=== PATIENT | female | born 2000 | race Caucasian/White ===

== ENCOUNTER 2022-02-09 01:15 | Day surgery (SDC) | payer BC, SELFPAY ==
[2022-01-30 13:38] VITALS: BMI 23.8
[2022-02-09 11:49] VITALS: BP 128/86; PULSE 77; RESP 18; TEMP 36.7; O2SAT 100
[2022-02-09] MEDS: LACTATED RINGERS 1,000 ML 150 ML IV CONT (11:57)
--- NOTE | 2022-02-09 12:36 | PM.HPGS ---
History of Present Illness History of Present Illness Consent: Risks, benefits, and alternatives have been discussed and questions answered. Patient agrees to proceed with procedure. Chief complaint: dysphagia, nausea Narrative: Bridget Rodriguez is a 21 year old female with compaints of coughing/vomiting/dysphagia for approximately 1 year. Reports coughing and vomiting are worse during the night, states coughing will wake her up, coughing will progress to vomiting yellow acid. she reports intermittent oral pharyngeal dysphagia to breads and meats, and applesauce. dysphagia improves with drinking liquids. She tried diet changes, not eating late at night and elevating the HOB without any improvement in symptoms. Recently was seen by ENT, Dr. Gonsalves, nasal scope showed endoscopic evidence of reflux (res reviewed). He started her on omeprazole 20 mg which she took for 1-2 weeks, denies any improvement. She states that she is taking omeprazole again, now taking it twice a day the so for now significant improvement. She states that she rarely goes through a night without waking up coughing and choking. I should add that she never has heartburn. Review of Systems Review of Systems: All systems reviewed & are unremarkable except as noted in HPI and below PMFSH Past Medical History Medical History Hypertriglyceridemia Family History Family History Father No problems noted. Mother Hypertension Grandparent Hypertension Diabetes mellitus Heart disease Kidney disease Social History Social History Smoking status: Never smoker Second hand tobacco smoke exposure: No Alcohol intake: current Drinks per week: 6 Substance use: never Substance use type: does not use Living arrangements: with friend(s) Spiritual care concerns: No Meds Home Medications and Allergies Home Medications Medication Instructions Recorded Confirmed Type gcxirtdmzwvt-Ma-vudt-minerals 18 1 tablet PO DAILY tablet 05/26/20 02/02/22 History mg-0.4 mg tablet norethindrone 1 mg-ethinyl 1 tablet PO DAILY 05/26/20 02/02/22 History estradiol 20 mcg (21)-iron 75 mg (7) tablet escitalopram oxalate 20 mg tablet 20 mg PO DAILY #90 tablet 12/12/21 02/02/22 Rx biotin 10,000 mcg capsule 10,000 mcg PO DAILY 01/19/22 02/02/22 History methylprednisolone 4 mg tablets in See Rx Instructions PO PER PKG DIR 02/02/22 02/09/22 Rx a dose pack #21 ea omeprazole 20 mg capsule,delayed 20 mg PO BID #30 cap 02/02/22 02/09/22 Rx release Allergies Allergy/AdvReac Type Severity Reaction Status Date / Time No Known Allergies Allergy Verified 02/09/22 11:46 Vital Signs Vital Signs - 24 hr 02/09/22 11:49 Temperature 36.7 C Pulse Rate 77 Respiratory Rate 18 Blood Pressure 128/86 Pulse Oximetry 100 Exam Const: General: alert Orientation/consciousness: patient oriented x3 Resp: Auscultation: clear to auscultation bilaterally Cardio: Rhythm: regular rhythm GI: GI Palp: Yes Soft to palpation and No Tenderness to palpation present (GI) Neuro: General: patient oriented x3 Assessment and Plan Assessment and plan (1) Dysphagia: Code(s): R13.10 - Dysphagia, unspecified Status: Acute Assessment and Plan: EGD with possible biopsy or dilatation or cautery.
--- NOTE | 2022-02-09 12:37 | WPDANESEPPF ---
Anes - Initial Pre Proc Eval Procedure: Operation Date: 02/09/22 13:00 Proposed Procedures p Esophagogastroduodenoscopy - Tahir Park MD Date/Time: 02/09/22 12:37 Surgeon: aThir Park MD Pre Op Diagnosis: dysphagia, nausea Patient Data Age: 21 Gender: F Height: 1.7 m Weight: 68.5 kg Last Vital Signs Temp 98.0 F 02/09/22 11:49 Pulse 77 02/09/22 11:49 Resp 18 02/09/22 11:49 BP 128/86 02/09/22 11:49 Pulse Ox 100 02/09/22 11:49 Allergies Allergy/AdvReac Type Severity Reaction Status Date / Time No Known Allergies Allergy Verified 02/09/22 11:46 Home Medications Medication Instructions Recorded Confirmed Type oonorefbyzyu-Dy-ycch-minerals 18 1 tablet PO DAILY tablet 05/26/20 02/02/22 History mg-0.4 mg tablet norethindrone 1 mg-ethinyl 1 tablet PO DAILY 05/26/20 02/02/22 History estradiol 20 mcg (21)-iron 75 mg (7) tablet escitalopram oxalate 20 mg tablet 20 mg PO DAILY #90 tablet 12/12/21 02/02/22 Rx biotin 10,000 mcg capsule 10,000 mcg PO DAILY 01/19/22 02/02/22 History methylprednisolone 4 mg tablets in See Rx Instructions PO PER PKG DIR 02/02/22 02/09/22 Rx a dose pack #21 ea omeprazole 20 mg capsule,delayed 20 mg PO BID #30 cap 02/02/22 02/09/22 Rx release Patient hx anesthesia problems: none Family hx anesthesia problems: none Results Review: All pre-operative results and documents have been reviewed as part of the pre-operative evaluation. [facility] Past Medical History Medical History Hypertriglyceridemia Family History Family History Father No problems noted. Mother Hypertension Grandparent Hypertension Diabetes mellitus Heart disease Kidney disease Social History Social History Smoking status: Never smoker Second hand tobacco smoke exposure: No Alcohol intake: current Drinks per week: 6 Substance use: never Substance use type: does not use Living arrangements: with friend(s) Spiritual care concerns: No Anes - Eval Final PreProcedure Day of Procedure 02/09/22 12:37 Patient weight: normal Heart: regular rate and rhythm Lungs: clear to auscultation Airway: Mallampati scale class II Neurological: alert and oriented Last oral intake: >/= 8 hours ASA classification: II Emergent: no Anesthetic plan: proceed Anesthesia type and monitoring: general GIVS and standard monitoring Results Review: All pre-operative results and documents have been reviewed as part of the pre-operative evaluation. Informed Consent: The patient's anesthetic plan and its attendant risks and benefits were discussed with the patient/family/POA. Questions were solicited and answers provided to the satisfaction of the patient/family/POA.
[2022-02-09 13:13] VITALS: BP 118/81; PULSE 70; RESP 25; O2SAT 100
[2022-02-09 13:23] VITALS: BP 124/85; PULSE 63; RESP 21; O2SAT 100
[2022-02-09 13:33] VITALS: BP 132/88; PULSE 62; RESP 16; O2SAT 100
== END 2022-02-09 13:39 | disposition home or self-care (01) ==
PROVIDERS: PCP Physician Assistant; Visit Provider Internal Medicine Gastroenterology
PROC: 0DJ08ZZ Inspection of Upper Intestinal Tract, Via Natural or Artificial Opening Endoscopic (ICD-10-PCS; CPT 43235; principal; 2022-02-09 13:00)
DX: K21.9 Gastro-esophageal reflux disease without esophagitis (principal); R13.10 Dysphagia, unspecified; R11.0 Nausea; E78.1 Pure hyperglyceridemia; R05.9 Cough, unspecified
CPT/HCPCS: 43239; 87081; 88305; J7120

== ENCOUNTER 2023-12-15 11:53 | Inpatient (IN) | payer BC, SELFPAY ==
[2023-12-15] VITALS (95 sets, daily range): BP systolic 106–177; BP diastolic 53–157; PULSE 25–174; RESP 18; TEMP 36.6–36.9; O2SAT 78–100; BMI 25.9
--- NOTE | ~2023-12-15 | US_ITS ---
Limited Pelvic ultrasound. Clinical History: Assess position Technique: Realtime transabdominal scanning of the pelvis was performed. Color flow Doppler and Doppl er spectral analysis were performed. Findings: Intrauterine gestation present, with vertex lie. heart rate 155 bpm.. Impression: Intrauterine gestation with vertex lie and heart rate of 155 bpm. Reviewed, dictated and finalized at [facility]. [employer] Impression: Intrauterine gestation with vertex lie and heart rate of 155 bpm.
--- NOTE | 2023-12-15 12:40 | PM.IMHP ---
H&P: HPI History of Present Illness Date/Time: 12/15/23 12:40 Chief Complaint: ruptured membranes Narrative: this is a 23-year-old 1 para 0 whose last menstrual period was 04/20/2023, EDC is 01/18/2024, confirmed a 10 week ultrasound presents at 35 and half weeks gestation with ruptured membranes. She noted some leaking fluid over about the last 24hours. She is negative for group B strep. Her has been otherwise uncomplicated. PMFSH Past Medical History Medical History Hypertriglyceridemia Family History Family History Father No problems noted. Mother Hypertension Grandparent Hypertension Diabetes mellitus Heart disease Kidney disease Social History Social History Smoking status: Never smoker Second hand tobacco smoke exposure: No Alcohol intake: current Drinks per week: 6 Substance use: never Substance use type: does not use Living arrangements: with friend(s) Spiritual care concerns: No Meds Home Medications and Allergies Home Medications Medication Instructions Recorded Confirmed Type ntambrosckwn-Tq-cbpj-minerals 18 1 tablet PO DAILY 05/26/20 02/02/22 History mg-0.4 mg tablet norethindrone 1 mg-ethinyl 1 tablet PO DAILY 05/26/20 02/02/22 History estradiol 20 mcg (21)-iron 75 mg (7) tablet ([place] Fe 11/24 ()) biotin 10,000 mcg capsule 10,000 mcg PO DAILY 01/19/22 02/02/22 History methylprednisolone 4 mg tablets in See Rx Instructions PO PER PKG DIR 02/02/22 02/09/22 Rx a dose pack (Medrol ([place])) #21 ea omeprazole 20 mg capsule,delayed See Rx Instructions .Route 06/02/22 Rx release .COMPLEX #30 caps escitalopram oxalate 20 mg tablet 20 mg PO DAILY #90 tabs 09/06/22 Rx Allergies Allergy/AdvReac Type Severity Reaction Status Date / Time No Known Allergies Allergy Verified 02/09/22 11:46 Vital Signs Vital Signs - 24 hr 12/15/23 12:30 Pulse Rate 75 Blood Pressure 150/91 H Exam Const: General: cooperative, healthy appearing and comfortable Nutritional Appearance: average body habitus Orientation/consciousness: oriented to person, oriented to place and oriented to time HENMT: Head: normal to inspection Resp: Effort & Inspection: normal respiratory effort Cardio: Rate: regular rate Rhythm: regular rhythm Heart sounds: S1 normal heart sound present and S2 normal heart sound present GI: Inspection: normal to inspection ( Soft gravid uterus) : External Female Exam: normal external appearance Speculum Exam - Vagina: normal appearance of the vagina Speculum Exam - Cervix: normal appearance of the cervix ( cervix 2.5/ 80/-2. Clear fluid seen. FHTs were reassuring) Assessment and Plan Assessment and plan (1) premature rupture of membranes: Code(s): O42.919 - premature rupture of membranes, unspecified as to length of time between rupture and onset of labor, unspecified trimester Status: Acute Plan IV antibiotics begun. Pitocin begun as prolonged ruptured ruptured membranes are present. She has an epidural candidate. Spontaneous vaginal delivery is expected
[2023-12-15 13:04] LABS: Basophils Percent Auto 0.2 % (0.2-1.2); Eosinophils Percent Auto 0.3 % (0-4.4); Hematocrit 41.7 % (37.0-47.0); Immature Granulocyte Absolute 0.03 K/mm3 (0.00-0.031); Immature Granulocyte Percent A 0.3 % (0-0.5); Lymphocytes Absolute Auto 1.59 K/mm3 (0.9-3.2); Lymphocytes Percent Auto 15.8 % (18.3-44.2); Mean Corpuscular HGB Conc 33.6 g/dl (32-36); Mean Corpuscular Hemoglobin 29.9 pg (26-34); Mean Corpuscular Volume 89.1 fl (80-100); Mean Platelet Volume 11.8 fl (7.4-10.4); Monocytes Absolute Auto 0.5 K/mm3 (0.1-0.6); Neutrophils Absolute Auto 7.9 K/mm3 (1.3-6.7); Neutrophils Percent Auto 78.4 % (45.5-73.1); Platelet Count Result 188 k/mm3 (150-375); Red Blood Count 4.68 M/mm3 (4.2-5.4); Red Cell Distribution Width 12.7 % (11.5-14.5); White Blood Count 10.1 K/mm3 (4.5-10.0)
[2023-12-15] MEDS: LACTATED RINGERS 1,000 ML 125 ML IV CONT ×2 (13:16→16:05)
[2023-12-15] MEDS: OXYTOCIN 30 UNITS/NS 500 ML 30 UNITS/500 ML BAG IV CONT (13:17)
[2023-12-15] MEDS: AMPICILLIN 2 GM/NS 100 ML 2 GM/100 ML BAG IVPB (13:17)
--- NOTE | 2023-12-15 13:35 | LDADM ---
This patient, Bridget Valenzuela, was admitted to Labor/Delivery/Recovery 106 on 12/15/23 at 11:53. Plans for labor, pain management and were discussed with patient. Patient/family oriented to hospital policies and general routines including ID bracelet, bed and alarms, visiting hours, pain management, procedures, bathroom and other care routines, personal items, smoking policy, room service/diet and guest tray routines, security routines, and visiting hours. Patient/Family are encouraged to report perceived risks to care and to ask questions if they do not understand what they are told or what they should do. See OBIX for further documentation.
--- NOTE | 2023-12-15 15:38 | WPDANESEPP ---
Anes - Eval Pre Procedure Procedure: labor pain management Date/Time: 12/15/23 15:38 Surgeon: Renan Arechiga Preop Diagnosis: pain during labor Pre Op Diagnosis: ROM Patient Data Age: 23 Gender: F Height: 1.7 m Weight: 75 kg Last Vital Signs Temp 98.4 F 12/15/23 14:00 Pulse 80 12/15/23 15:16 BP 144/94 H 12/15/23 15:16 Pulse Ox 100 12/15/23 15:35 O2 Del Method Room Air 12/15/23 13:35 Allergies Allergy/AdvReac Type Severity Reaction Status Date / Time No Known Allergies Allergy Verified 02/09/22 11:46 Laboratory Tests 12/15/23 12:59 WBC 10.1 H K/mm3 (4.5-10.0) RBC 4.68 M/mm3 (4.2-5.4) Hgb 14.0 g/dL (12.0-15.0) Hct 41.7 % (37.0-47.0) MCV 89.1 fl (80-100) MCH 29.9 pg (26-34) MCHC 33.6 g/dl (32-36) RDW 12.7 % (11.5-14.5) Plt Count 188 k/mm3 (150-375) MPV 11.8 H fl (7.4-10.4) Immature Gran % (Auto) 0.3 % (0-0.5) Neut % (Auto) 78.4 H % (45.5-73.1) Lymph % (Auto) 15.8 L % (18.3-44.2) [place] % (Auto) 5.0 % (2.6-8.5) Eos % (Auto) 0.3 % (0-4.4) Baso % (Auto) 0.2 % (0.2-1.2) Lymph # (Auto) 1.59 K/mm3 (0.9-3.2) [place] # (Auto) 0.5 K/mm3 (0.1-0.6) Eos # (Auto) 0.0 K/mm3 (0-0.3) Baso # (Auto) 0.0 K/mm3 (0.0-0.1) Abs Immat Gran (auto) 0.03 K/mm3 (0.00-0.031) Absolute Neuts (auto) 7.9 H K/mm3 (1.3-6.7) Absolute Nucleated RBC 0.0 K/mm3 (0.0-0.012) Nucleated RBC % 0.0 % (0.0-0.2) RPR Pending Blood Type B Positive Antibody Screen Negative Patient hx anesthesia problems: none Family hx anesthesia problems: none Results Review: All pre-operative results and documents have been reviewed as part of the pre-operative evaluation. PMFSH Past Medical History Medical History Hypertriglyceridemia Family History Family History Father No problems noted. Mother Hypertension Grandparent Hypertension Diabetes mellitus Heart disease Kidney disease Social History Social History Smoking status: Never smoker Second hand tobacco smoke exposure: No Alcohol intake: current Drinks per week: 6 Substance use: never Substance use type: does not use Do You Feel Safe in your Home?: No Lack of Transportation: No Lack of Food: Never True Current Housing: I Have Housing Concerned About Future Housing: No Difficulty Paying Gas/Electric Bills: No Difficulty Paying for Meds: No Currently Unemployed: No Education: Don't Know Difficulty w/ Childcare or Family Care: No Living arrangements: with friend(s) Spiritual care concerns: No Exam Day of Procedure 12/15/23 15:38
[2023-12-15] MEDS: AMPICILLIN 1 GM/NS 50 ML 1 GM/50 ML BAG IVPB (17:20)
--- NOTE | 2023-12-15 19:06 | PM.OBPRVD ---
OB - Vaginal Delivery Note Procedure Delivery date: 12/15/23 Events: Premature Rupture of Membranes Induction method: None Delivery augmentation: Pitocin Delivery monitor: External FHT and Internal Uterine Route of delivery: Episiotomy description: None Laceration Description: Perineal - 2nd Degree Quantitative Blood Loss (ml): 161 Anesthesia type: Epidural Disposition: Floor Complications: No immediate complications [place] Baby Date of : 12/15/23 Time of : 18:51 Weeks of gestation at delivery: 35 gender: Male presentation: vertex position: Right Occiput Anterior Placenta delivery description: Spontaneous Cord Vessel Description: 3 Vessels score one minute: 8 score five minutes: 9
--- NOTE | 2023-12-15 19:09 | PM.DS ---
DS: Admitting Diagnosis Discharge Date 12/17/2023 Admitting Diagnosis Pre term rupture membranes DS: Discharge Diagnosis Discharge Diagnosis (1) Pain during labor: Code(s): O99.892 - Other specified diseases and conditions complicating childbirth; R52 - Pain, unspecified Status: Acute DS: Summary Hospital Course Reason for hospitalization: the patient was admitted 12/15/2023 with spontaneous rupture membr Hospital Course: anes at 35 weeks. She underwent spontaneous vaginal delivery. Her hospital course unremarkable. She remained afebrile. She was up, voiding without difficulty and ambulating, eating regular diet, 8 in general without complaints. Time Spent with Patient Time attestation: Total time spent providing and/or coordinating discharge services: Exam Const: General: cooperative, healthy appearing and comfortable Nutritional Appearance: average body habitus Orientation/consciousness: oriented to person, oriented to place and oriented to time HENMT: Head: normal to inspection Resp: Effort & Inspection: normal respiratory effort Cardio: Rate: regular rate Rhythm: regular rhythm Heart sounds: S1 normal heart sound present and S2 normal heart sound present GI: Inspection: normal to inspection DS: Data Data Completed and Pending Labs on day of discharge: Labs from last 24 hours 12/15/23 12:59 WBC 10.1 H RBC 4.68 Hgb 14.0 Hct 41.7 MCV 89.1 MCH 29.9 MCHC 33.6 RDW 12.7 Plt Count 188 MPV 11.8 H Immature Gran % (Auto) 0.3 Neut % (Auto) 78.4 H Lymph % (Auto) 15.8 L [place] % (Auto) 5.0 Eos % (Auto) 0.3 Baso % (Auto) 0.2 Lymph # (Auto) 1.59 [place] # (Auto) 0.5 Eos # (Auto) 0.0 Baso # (Auto) 0.0 Abs Immat Gran (auto) 0.03 Absolute Neuts (auto) 7.9 H Absolute Nucleated RBC 0.0 Nucleated RBC % 0.0 RPR Pending Blood Type B Positive Antibody Screen Negative Discharge Plan Discharge Attending physician on discharge: Nader Jeffery Discharging Clinician: Nader Jeffery Patient Disposition: Home, Self-Care Activity: may shower and pelvic rest Diet: heart healthy Wound Care Instructions: follow printed instructions Patient Instructions: Antibiotic Form Stand Alone Forms: General Discharge Information Follow-up/Referrals: Nader Jeffery MD [Physician] - Date of admission: 12/15/23 11:53 Primary Care Provider: Jayjay Virgen Admitting Provider: Nader Jeffery Attending physician on admission: Nader Jeffery Condition: Stable
[2023-12-15] MEDS: OXYTOCIN 30 UNITS/NS 500 ML 30 UNITS/500 ML BAG 125 UNITS IV CONT (19:38)
[2023-12-15] MEDS: BENZOCAINE 20% AER SPR (*SP) 56 GM CAN 1 SPRAY TOPICAL (20:49)
[2023-12-15] MEDS: WITCH HAZEL 40 PADS 1 PAD TOPICAL (20:49)
--- NOTE | 2023-12-15 21:51 | OBPPTRN ---
Patient transferred to post room #290 via w/c. Support person present. Oriented to unit, room, information board, rooming in, admission packet and security measures. Patient verbalizes understanding.
[2023-12-15] MEDS: IBUPROFEN 600 MG TABLET PO (22:25)
[2023-12-16 03:00] VITALS: BP 118/72; PULSE 77; RESP 18; TEMP 36.7
[2023-12-16] MEDS: ACETAMINOPHEN 325 MG TABLET 650 MG PO ×2 (04:35→16:31)
[2023-12-16 04:55] LABS: Hematocrit 29.3 % (37.0-47.0); Hemoglobin 9.8 g/dL (12.0-15.0)
--- NOTE | 2023-12-16 06:21 | PM.OBPNVD ---
OB - PN: Subj Subjective Date/time seen: 12/16/23 06:21 Patient comments: no complaints and pain well controlled baby status: doing well OB - PN: Obj Data Labs 12/16/23 04:44 Labs: Laboratory Results - last 24 hr 12/15/23 12/16/23 12:59 04:44 WBC 10.1 H RBC 4.68 Hgb 14.0 9.8 L D Hct 41.7 29.3 L MCV 89.1 MCH 29.9 MCHC 33.6 RDW 12.7 Plt Count 188 MPV 11.8 H Immature Gran % (Auto) 0.3 Neut % (Auto) 78.4 H Lymph % (Auto) 15.8 L [place] % (Auto) 5.0 Eos % (Auto) 0.3 Baso % (Auto) 0.2 Lymph # (Auto) 1.59 [place] # (Auto) 0.5 Eos # (Auto) 0.0 Baso # (Auto) 0.0 Abs Immat Gran (auto) 0.03 Absolute Neuts (auto) 7.9 H Absolute Nucleated RBC 0.0 Nucleated RBC % 0.0 Blood Type B Positive Antibody Screen Negative Imaging Radiologist's impression: Impressions Obstetrics Ultrasound 12/15/23 16:40 Impression: Intrauterine gestation with vertex lie and heart rate of 155 bpm. OB - PN A/P Plan day: 1 Plan: routine care Time Spent With Patient Time: Total time spent is greater than 50% in coordination of care (as documented) at patient's floor/unit and/or counseling patient: Time with patient: less than 15 minutes Exam Const: General: cooperative, healthy appearing and comfortable Nutritional Appearance: average body habitus Orientation/consciousness: oriented to person, oriented to place and oriented to time Resp: Effort & Inspection: normal respiratory effort GI: Inspection: normal to inspection
[2023-12-16 08:16] VITALS: BP 120/75; PULSE 78; RESP 20; TEMP 36.6; O2SAT 100
[2023-12-16] MEDS: DOCUSATE SODIUM 100 MG CAPSULE PO ×2 (08:42→16:31)
[2023-12-16] MEDS: WITCH HAZEL 40 PADS 1 PAD TOPICAL (08:42)
[2023-12-16] MEDS: POLYSACCHARIDE IRON COMPLEX 150 MG CAPSULE PO ×2 (08:42→16:31)
[2023-12-16] MEDS: IBUPROFEN 600 MG TABLET PO ×2 (08:42→19:13)
[2023-12-16] MEDS: MULTIVIT/MIN/PREN/FOL AC/IRON TABLET 1 TAB PO (08:42)
[2023-12-16] MEDS: LANOLIN (LANSINOH) 7.5 GM CREAM 1 APPLIC TOPICAL (08:43)
--- NOTE | 2023-12-16 09:16 | WPDANLDPN2 ---
Anes-Prog Note L&D Date/Time: 12/16/23 09:16 Comfortable throughout: labor and delivery Neuraxial method: epidural Epidural/Spinal procedure site: clean & non-tender Neuro status: Neuro function grossly intact. Cardiovascular status: normal Respiratory status: normal Airway patency: baseline Mental status: baseline Post-Op hydration status: normal Vital Signs: Last Vital Signs Temp 97.9 F 12/16/23 08:16 Pulse 78 12/16/23 08:16 Resp 20 12/16/23 08:16 BP 120/75 12/16/23 08:16 Pulse Ox 100 12/16/23 08:16 O2 Del Method Room Air 12/15/23 22:00 Pain score (VAS): 0 I/O: Intake & Output 12/15/23 12/16/23 12/16/23 23:59 07:59 15:59 Intake Total 1000 Output Total 840 Balance 160 Post-procedural complaints: none Patient feedback: Patient satisfied with anesthetic care.
[2023-12-16 17:59] VITALS: BP 124/64; PULSE 96; RESP 18; TEMP 37.1; O2SAT 99
[2023-12-16 19:14] VITALS: BP 120/80; PULSE 82; RESP 16; TEMP 36.8; O2SAT 99
--- NOTE | 2023-12-17 07:07 | PM.OBPNVD ---
OB - PN: Subj Subjective Date/time seen: 12/17/23 07:07 Patient comments: no complaints and pain well controlled baby status: doing well OB - PN: Obj Data Labs 12/16/23 04:44 OB - PN A/P Plan day: 1 Plan: routine care Time Spent With Patient Time: Total time spent is greater than 50% in coordination of care (as documented) at patient's floor/unit and/or counseling patient: Time with patient: less than 15 minutes Exam Const: General: cooperative, healthy appearing and comfortable Nutritional Appearance: average body habitus Orientation/consciousness: oriented to person, oriented to place and oriented to time HENMT: Head: normal to inspection Resp: Effort & Inspection: normal respiratory effort Cardio: Rate: regular rate Rhythm: regular rhythm Heart sounds: S1 normal heart sound present and S2 normal heart sound present GI: Inspection: normal to inspection
[2023-12-17 07:40] VITALS: BP 126/82; PULSE 78; RESP 12; TEMP 36.4; O2SAT 99
[2023-12-17] MEDS: MULTIVIT/MIN/PREN/FOL AC/IRON TABLET 1 TAB PO (07:41)
[2023-12-17] MEDS: DOCUSATE SODIUM 100 MG CAPSULE PO ×2 (07:41→17:13)
[2023-12-17] MEDS: POLYSACCHARIDE IRON COMPLEX 150 MG CAPSULE PO ×2 (07:41→17:13)
[2023-12-17 10:41] LABS: Rapid Plasma Reagin Non-Reactive (NonReactive)
[2023-12-17] MEDS: IBUPROFEN 600 MG TABLET PO ×2 (11:18→17:13)
--- NOTE | 2023-12-17 16:01 | PC.NURSE ---
1430 Introductions were made, then consulted with patient to assess needs related to . Mother led the conversation with her?plans to feed?her and the?experience so far. Encouraged understanding of the benefits of skin to skin (demonstrating unwrapping infant and placing upright on her chest), stimulating with massage touch, changing positions to encourage wakefulness, how to watch for early feeding cues, responsive feeding, feeding on demand (aiming for 8-12 times in 24 hours, about every 2-3 hours), milk production, building/maintaining a milk supply, duration of feeding, signs of adequate intake/output and how to record on the feeding sheet. Mother works well with her with encouragement and education. Reviewed positioning and ear, shoulder, hip alignment, supporting the breast to facilitate a deep latch, asymmetrical latch (off-center), leading with the chin with a big, open, wide gape and body close to mother. Infant is put to breast before formula is given per physician's orders. When attempts to breast feed encouraged to use comfort measures of healing with a warm, wet washcloth to rinse breast, then leave open to air-dry, good handwashing when or touching the breast/nipples to prevent infection. Mother voiced understanding of skin to skin, stimulating with massage touch, responsive feedings, hand expressed colostrum, talking to infant to encourage if it has been 2 -2.5 hours since the start of the last , to call if infant does not latch, or if there is discomfort with . Resources used for education were facilitated with the visual educational handouts/ tool/mom and baby guide, Inpatient resources provided with business card, feeding sheet, name written on the communication board, and the mom/baby guide. Parents voiced understanding of information, demonstrated learning and will call if there is a request for assistance with next attempt to breastfeed. Reported to the Primary RN.
--- NOTE | 2023-12-18 15:42 | PC.NURSE ---
1300 Consulted with patient to assess needs related to and pumping. Discussed with mother her?plans to feed?her infant and the?experience so far. Resources provided for inpatient and outpatient services with the feeding sheet, mom/baby guide and name written on the communication board. Mother voiced understanding of information, denies needs or questions at this time and will call if there is a request for assistance. Reported to the Primary RN.
[2023-12-19 13:41] VITALS: BP 116/80; PULSE 85; RESP 18; TEMP 36.8; O2SAT 100
== END 2023-12-17 17:55 | disposition home or self-care (01) | DRG 807 ==
LOC: ANHLDR 19:12 → ANHOB2 21:59
PROVIDERS: Admitting Provider Obstetrics & Gynecology; PCP Physician Assistant; Visit Provider Obstetrics & Gynecology
DX: O42.913 Preterm premature rupture of membranes, unspecified as to length of time between rupture and onset of labor, third trimester (principal); Z37.0 Single live birth; O70.1 Second degree perineal laceration during delivery; Z3A.35 35 weeks gestation of pregnancy
CPT/HCPCS: 36415; 76815; 84112; 85014; 85018; 85025; 86592; 86850; 86900; 86901; A9270; J0290; J2590; J2795; J7120

== ENCOUNTER 2025-01-19 12:10 | Emergency (ER) | payer BC, SELFPAY ==
--- NOTE | ~2025-01-19 | CT_ITS ---
CT abdomen pelvis w con Ordering provider: Hilda Cantrell MD History: 24 years Female with . epigastric pain after eating, N/V . Comparison: None. Technique: CT abdomen and pelvis with IV and without oral contrast. Automated exposure control and it erative reconstruction technique were employed. The dose-length product was 188.58 mGy-cm. 100 mL Omn ipaque 350 was given IV. Findings: VISUALIZED LOWER CHEST: Normal. UPPER ABDOMINAL ORGANS: Liver: Normal. Gallbladder: Contracted. Spleen: Normal. Stomach/duodenum: Normal. Pancreas: Normal. Adrenals: Normal. Kidneys: Normal. PELVIC ORGANS: The bladder is normal. BOWEL AND MESENTERY: Colon: No evidence of diverticulitis.. Normal appendix. Small Bowel: Normal. No obstruction. Peritoneum/mesentery: No free air or free fluid. No mesenteric lymphadenopathy. RETROPERITONEUM: Normal aorta. Prominent vessels in the sides of the uterus suggestive of pelvic con gestion syndrome. No retroperitoneal lymphadenopathy. MUSCULOSKELETAL: Superficial soft tissues: The superficial soft tissues are normal. Bones: Normal spine. IMPRESSION: 1. No evidence of appendicitis, diverticulitis or intestinal obstruction. 2. Pelvic congestion syndrome. Reviewed, dictated and finalized at location A.
[2025-01-19 12:10] VITALS: BP 130/89; PULSE 75; RESP 16; TEMP 36.6; O2SAT 100
--- NOTE | 2025-01-19 12:31 | ED_ITS ---
HPI - Abdominal Pain General Chief Complaint: Nausea/Vomiting/Diarrhea Stated Complaint: nausea x 2 months Time Seen by Provider: 01/19/25 12:18 Source: patient Mode of arrival: ambulatory Limitations: no limitations History of Present Illness HPI narrative: 24 YEARS OLD WHITE FEMALE CAME TO THE ED BY PRIVATE CAR WITH HER COMPLAINING OF EPIGASTRIC BURNING SENSATION FOR THE LAST 3 MONTHS, CONSTANT, FLARE UP AFTER EATING ANY KIND OF FOOD. PATIENT REPORT CONSTANT NAUSEA AND LOSING WEIGHT, POOR APPETITE, EATS MAXIMUM 2 MEALS A DAY. DENIES ANY FEVER, CHILLS, DIARRHEA, CONSTIPATION OR STRESS. PATIENT START BREAST-FEEDING HER CHILD 3 MONTHS AGO AND THE SYMPTOMS STARTED IMMEDIATELY AT THE 2ND DAY. PATIENT DENIES ANY HISTORY OF ABDOMINAL SURGERY. Related Data Allergies Allergy/AdvReac Type Severity Reaction Status Date / Time No Known Allergies Allergy Verified 01/19/25 12:16 Review of Systems 2 Review of Systems: All systems reviewed & are unremarkable except as noted in HPI and below PMFSH Past Medical History Medical History Hypertriglyceridemia Family History Family History Father No problems noted. Mother Hypertension Grandparent Hypertension Diabetes mellitus Heart disease Kidney disease Social History Social History Smoking status: Never smoker Second hand tobacco smoke exposure: No Alcohol intake: current Drinks per week: 6 Substance use: never Substance use type: does not use Do You Feel Safe in your Home?: No Lack of Transportation: No Lack of Food: Never True Current Housing: I Have Housing Concerned About Future Housing: No Difficulty Paying Gas/Electric Bills: No Difficulty Paying for Meds: No Currently Unemployed: No Education: Don't Know Difficulty w/ Childcare or Family Care: No Living arrangements: with friend(s) Spiritual care concerns: No Exam 2 Narrative: GENERAL APPEARANCE: WELL-DEVELOPED, WELL-NOURISHED SKIN: NORMAL COLOR HEAD: NORMOCEPHALIC, NONTRAUMATIC EYES: CLEAR CONJUNCTIVA ENT: OROPHARYNX NORMAL, EARS NORMAL, NOSE NORMAL NECK: SUPPLE, NONTENDER CHEST AND RESPIRATORY: AIRWAY PATENT, NO RESPIRATORY DISTRESS, NO ACCESSORY MUSCLE USE HEART: REGULAR RATE/RHYTHM ABDOMEN: SOFT, MODERATE TENDERNESS EPIGASTRIC AREA, NO ORGANOMEGALY, QUIET BOWEL SOUNDS VASCULAR: NORMAL PERIPHERAL PULSES, NORMAL CAPILLARY REFILL. MUSCULOSKELETAL: NORMAL RANGE OF MOTION, NONTENDER BACK NEUROLOGIC: ALERT AND ORIENTED ?3, HYDROBLASTER IS NORMAL TESTED, NO GROSS MOTOR DEFICIT Course Vital Signs Vital signs: Vital Signs Temperature 36.6 C 01/19/25 12:10 Pulse Rate 75 01/19/25 12:10 Respiratory Rate 16 01/19/25 12:10 Blood Pressure 130/89 01/19/25 12:10 Pulse Oximetry 100 01/19/25 12:10 Oxygen Delivery Room Air 01/19/25 12:10 Temperature 36.6 C 01/19/25 12:10 Pulse Rate 75 01/19/25 12:10 Respiratory Rate 16 01/19/25 12:10 Blood Pressure 130/89 01/19/25 12:10 Pulse Oximetry 100 01/19/25 12:10 Oxygen Delivery Room Air 01/19/25 12:10 MDM - Abdominal Pain MDM Narrative Medical decision making narrative: PATIENT PRESENTS WITH EPIGASTRIC PAIN, NAUSEA AND LOOSE OF WEIGHT FOR THE LAST 3 MONTHS VITAL SIGNS ARE STABLE PHYSICAL EXAMINATION CONSISTENT WITH EPIGASTRIC TENDERNESS DIFFERENTIAL DIAGNOSIS INCLUDE ANXIETY/ STRESS LIKE SYMPTOMS, GERD, GASTRITIS, ESOPHAGITIS, PANCREATITIS, CHOLECYSTITIS, INTRA-ABDOMINAL MALIGNANCY. BLOOD WORKUP TODAY INCLUDES CBC, CMP, TSH SHOWED no significant abnormalities URINE TEST SHOWED negative URINALYSIS SHOWED no evidence of infection CT ABDOMEN AND PELVIS WITH IV CONTRAST SHOWED 1. No evidence of appendicitis, diverticulitis or intestinal obstruction. 2. Pelvic congestion syndrome. Diagnosis epigastric pain, pelvic congestion syndrome Discharged on Protonix The pt was discharged to home.the pt,s condition upon discharge was fair,education was provided to the pt in reference to the final impression,discharge study results,treatment,prognosis and need for follow up . Differential Diagnosis Differential diagnosis: Likely other (As above) Medical Records Attestation: I reviewed the patient's medical records. Lab Data Attestation: I reviewed the patient's lab results. 01/19/25 12:44 01/19/25 12:44 Labs: Lab Results 01/19/25 Range/Units 12:44 WBC 5.8 (4.8-10.8) K/mm3 RBC 4.78 (4.20-5.40) M/mm3 Hgb 14.0 (12.0-15.0) g/dL Hct 41.5 (35.0-49.0) % MCV 86.8 (78.0-102.0) fL MCH 29.3 (27.0-31.0) pg MCHC 33.7 (32-36) g/dL RDW 11.9 (11.6-14.4) % Plt Count 206 (150-420) K/mm3 MPV 10.3 (9.2-11.8) fl Immature Gran % (Auto) 0.3 H (0.0-0.0) % Neut % (Auto) 63.0 (50.0-70.0) % Lymph % (Auto) 29.3 (18.0-42.0) % Forrest % (Auto) 5.0 (2.0-11.0) % Eos % (Auto) 1.9 (1.0-6.0) % Baso % (Auto) 0.5 (0.0-1.0) % Lymph # (Auto) 1.70 (1.10-4.50) K/mm3 Forrest # (Auto) 0.29 (0.10-0.90) K/mm3 Eos # (Auto) 0.11 (0.02-0.50) K/mm3 Baso # (Auto) 0.03 (0.00-0.10) K/mm3 Abs Immat Gran (auto) 0.02 H (0.00-0.00) K/mm3 Absolute Neuts (auto) 3.65 (1.70-7.20) K/mm3 Absolute Nucleated RBC 0.00 (0.00-0.00) K/mm3 Nucleated RBC % 0.0 (0-0.0) % Sodium 139 (136-145) mmol/L Potassium 4.2 (3.5-5.1) mmol/L Chloride 104 (98-108) mmol/L Carbon Dioxide 28 (21-32) mmol/L Anion Gap 7 (4-12) mmol/L BUN 10 (7-18) mg/dL Creatinine 0.78 (0.55-1.02) mg/dL Estim Creat Clear Calc 82 ml/min Estimated GFR > 60 (59 - ) Glucose 95 (70-99) mg/dL Calculated Osmolality 287 (285-295) mOsm/kg Calcium 9.0 (8.5-10.1) mg/dL Total Bilirubin 0.3 (0.00-1.00) mg/dL AST 10 L (15-37) U/L ALT 21 (14-59) U/L Alkaline Phosphatase 72 (46-116) U/L Total Protein 7.3 (6.4-8.2) g/dL Albumin 4.2 (3.4-5.0) g/dL Lipase 76 (16-77) U/L TSH 1.74 (0.36-3.74) uIU/mL Urine Color Light yellow (Yellow) Urine Appearance Clear (Clear) Urine pH 6.0 (5.0-8.0) Ur Specific [place] <= 1.005 L (1.010-1.020) Urine Protein Negative (Negative) Urine Glucose (UA) Negative (Negative) Urine Ketones Negative (Negative) Ur Blood (Man) Trace-intact H (Negative) Urine Nitrate Negative (Negative) Urine Bilirubin Negative (Negative) Urine Urobilinogen 0.2 (0.2-1.0) mg/dL Leukocyte Esterase Rfl 1+ H (Negative) ISIDRO/UL Urine RBC None seen (0-2) /hpf Urine WBC 0-5 (0-3) /hpf Ur Squamous Epith Cells Rare (Few) /hpf Urine Bacteria 2+ H (None) /hpf Urine Test Negative Imaging Data Radiologist's impression: Impressions Abdomen/Pelvis CT 01/19/25 14:02 IMPRESSION: 1. No evidence of appendicitis, diverticulitis or intestinal obstruction. 2. Pelvic congestion syndrome. Critical Care Time Critical Care Time Critical Care Time: No Discharge Plan Discharge Clinical Impression: Epigastric abdominal pain, Female pelvic congestion syndrome Patient Disposition: Home, Self-Care Condition: Stable Instructions: Epigastric Pain (ED) Additional Instructions: Return if symptoms are worsening , call your family physician for appointment, take Tylenol as as needed for aches and pain, continue home medications. Patient Language: Mosotho Prescriptions: New pantoprazole [Protonix] 40 mg tablet,delayed release (DR/EC) 40 mg PO QAM 30 Days Qty: 30 0RF Follow-up/Referrals: UNKNOWN,DOCTOR [Primary Care Provider] -
[2025-01-19 12:55] LABS: Add Urine Microscopic? YES; Appearance Urine Clear (Clear); Bilirubin Urine Negative (Negative); Blood Urine Trace-intact (Negative); Color Urine Light Yellow (Yellow); Glucose Urine UA Negative (Negative); Ketones Urine Negative (Negative); Leukocyte Esterase Ur 1+ LEU/UL (Negative); Nitrate Urine Negative (Negative); Protein Urine Negative (Negative); Specific Grav Ur <= 1.005 (1.010-1.020); Urobilinogen Urine 0.2 mg/dL (0.2-1.0)
[2025-01-19 12:56] LABS: Basophils Absolute Auto 0.03 K/mm3 (0.00-0.10); Basophils Percent Auto 0.5 % (0.0-1.0); Eosinophils Absolute Auto 0.11 K/mm3 (0.02-0.50); Eosinophils Percent Auto 1.9 % (1.0-6.0); Hematocrit 41.5 % (35.0-49.0); Immature Granulocyte Absolute 0.02 K/mm3 (0.00-0.00); Immature Granulocyte Percent A 0.3 % (0.0-0.0); Lymphocytes Percent Auto 29.3 % (18.0-42.0); Mean Corpuscular HGB Conc 33.7 g/dL (32-36); Mean Corpuscular Hemoglobin 29.3 pg (27.0-31.0); Mean Corpuscular Volume 86.8 fL (78.0-102.0); Mean Platelet Volume 10.3 fl (9.2-11.8); Monocytes Absolute Auto 0.29 K/mm3 (0.10-0.90); Neutrophils Absolute Auto 3.65 K/mm3 (1.70-7.20); Platelet Count Result 206 K/mm3 (150-420); Red Blood Count 4.78 M/mm3 (4.20-5.40); Red Cell Distribution Width 11.9 % (11.6-14.4); White Blood Count 5.8 K/mm3 (4.8-10.8)
[2025-01-19 12:57] LABS: Pregnancy On Board Control Positive; Urine Pregnancy Test Negative
[2025-01-19] MEDS: SODIUM CHLORIDE 0.9% IV 1,000 ML 999 ML IV CONT (12:58)
[2025-01-19 13:02] LABS: Bacteria Urine 2+ /hpf; RBC Urine None seen /hpf (0-2); Squamous Epithelial Cell Urine Rare /hpf (Few); WBC Urine 0-5 /hpf (0-3)
[2025-01-19 13:25] LABS: Alanine Aminotransferase 21 U/L (14-59); Albumin Level 4.2 g/dL (3.4-5.0); Alkaline Phosphatase 72 U/L (46-116); Anion Gap 7 mmol/L (4-12); Aspartate Amino Transferase 10 U/L (15-37); Bilirubin,Total 0.3 mg/dL (0.00-1.00); Blood Urea Nitrogen 10 mg/dL (7-18); Carbon Dioxide 28 mmol/L (21-32); Chloride 104 mmol/L (98-108); Estimated CRCL calculation 82 ml/min; Estimated Glomerular Filt Rate > 60; Glucose 95 mg/dL (70-99); Lipase 76 U/L (16-77); Osmolality Calculated 287 mOsm/kg (285-295); Potassium 4.2 mmol/L (3.5-5.1); Sodium 139 mmol/L (136-145); Total Protein 7.3 g/dL (6.4-8.2)
[2025-01-19 13:26] LABS: Thyroid Stimulating Hormone 1.74 uIU/mL (0.36-3.74)
[2025-01-19 14:25] VITALS: BP 121/67; PULSE 67; RESP 16; O2SAT 100
--- NOTE | 2025-01-21 14:41 | PC.NURSE ---
FINAL URINE CULTURE NO GROWTH
== END 2025-01-19 14:25 | disposition home or self-care (01) ==
PROVIDERS: Emergency Provider Emergency Medicine
DX: R10.13 Epigastric pain (principal); N94.89 Other specified conditions associated with female genital organs and menstrual cycle; E78.1 Pure hyperglyceridemia
CPT/HCPCS: 36415; 74177; 80053; 81001; 81025; 83690; 84443; 85025; 87086; 96360; 99284; J7030; Q9967

== ENCOUNTER 2025-02-06 00:18 | Day surgery (SDC) | payer BC, SELFPAY ==
[2025-02-05 08:19] VITALS: BMI 20.5
--- NOTE | 2025-02-05 13:56 | WPDANESEPPF ---
Anes - Initial Pre Proc Eval Procedure: Operation Date: 02/06/25 14:00 Proposed Procedures p Esophagogastroduodenoscopy - Prabhu Galvan MD Date/Time: 02/05/25 13:56 Surgeon: Prabhu Galvan MD Pre Op Diagnosis: abd normal weight loss,upper abd pain Patient Data Age: 24 Gender: F Height: 1.65 m Weight: 56 kg Allergies Allergy/AdvReac Type Severity Reaction Status Date / Time No Known Allergies Allergy Verified 02/05/25 08:33 Home Medications ?Medication ?Instructions ?Recorded ?Confirmed ?Type ondansetron 4 mg disintegrating 4 mg PO Q8H #60 tabs 01/30/25 02/05/25 Rx tablet pantoprazole 40 mg tablet,delayed 40 mg PO QAM #30 tabs 01/30/25 02/05/25 Rx release dicyclomine 10 mg capsule 10 mg PO TID #90 caps 02/02/25 02/05/25 Rx Results Review: All pre-operative results and documents have been reviewed as part of the pre-operative evaluation. [facility] Past Medical History Medical History (Updated 02/05/25 @ 13:57 by Jose Gaona DO) Anxiety ADD (attention deficit disorder) GERD (gastroesophageal reflux disease) Hypertriglyceridemia Family History Family History Father No problems noted. Mother Hypertension Grandparent Hypertension Diabetes mellitus Heart disease Kidney disease Social History Social History Smoking status: Never smoker Second hand tobacco smoke exposure: No Alcohol intake: current Drinks per week: 6 Alcohol use details: rare Substance use: never Substance use type: does not use Do You Feel Safe in your Home?: No Lack of Transportation: No Lack of Food: Never True Current Housing: I Have Housing Concerned About Future Housing: No Difficulty Paying Gas/Electric Bills: No Difficulty Paying for Meds: No Currently Unemployed: No Education: Don't Know Difficulty w/ Childcare or Family Care: No Living arrangements: with family Spiritual care concerns: No Anes - Eval Final PreProcedure Day of Procedure 02/05/25 13:56 Results Review: All pre-operative results and documents have been reviewed as part of the pre-operative evaluation. Informed Consent: The patient's anesthetic plan and its attendant risks and benefits were discussed with the patient/family/POA. Questions were solicited and answers provided to the satisfaction of the patient/family/POA.
[2025-02-06 12:53] VITALS: BP 128/69; PULSE 67; RESP 18; TEMP 36.5; O2SAT 100
[2025-02-06] MEDS: LACTATED RINGERS 1,000 ML 150 ML IV CONT (13:08)
--- NOTE | 2025-02-06 13:14 | WPDANESEPPF ---
Anes - Initial Pre Proc Eval Procedure: Operation Date: 02/06/25 14:00 Proposed Procedures p Esophagogastroduodenoscopy - Prabhu Galvan MD Date/Time: 02/06/25 13:14 Surgeon: Prabhu Galvan MD Pre Op Diagnosis: abd normal weight loss,upper abd pain Patient Data Age: 24 Gender: F Height: 1.65 m Weight: 53.5 kg Last Vital Signs Temp 97.7 F 02/06/25 12:53 Pulse 67 02/06/25 12:53 Resp 18 02/06/25 12:53 BP 128/69 02/06/25 12:53 Pulse Ox 100 02/06/25 12:53 O2 Del Method Room Air 02/06/25 12:53 Allergies Allergy/AdvReac Type Severity Reaction Status Date / Time No Known Allergies Allergy Verified 02/06/25 12:51 Home Medications ?Medication ?Instructions ?Recorded ?Confirmed ?Type ondansetron 4 mg disintegrating 4 mg PO Q8H #60 tabs 01/30/25 02/05/25 Rx tablet pantoprazole 40 mg tablet,delayed 40 mg PO QAM #30 tabs 01/30/25 02/05/25 Rx release dicyclomine 10 mg capsule 10 mg PO TID #90 caps 02/02/25 02/05/25 Rx Patient hx anesthesia problems: none Family hx anesthesia problems: none Results Review: All pre-operative results and documents have been reviewed as part of the pre-operative evaluation. [facility] Past Medical History Medical History Anxiety ADD (attention deficit disorder) GERD (gastroesophageal reflux disease) Hypertriglyceridemia Family History Family History Father No problems noted. Mother Hypertension Grandparent Hypertension Diabetes mellitus Heart disease Kidney disease Social History Social History Smoking status: Never smoker Second hand tobacco smoke exposure: No Alcohol intake: current Drinks per week: 6 Alcohol use details: rare Substance use: never Substance use type: does not use Do You Feel Safe in your Home?: No Lack of Transportation: No Lack of Food: Never True Current Housing: I Have Housing Concerned About Future Housing: No Difficulty Paying Gas/Electric Bills: No Difficulty Paying for Meds: No Currently Unemployed: No Education: Don't Know Difficulty w/ Childcare or Family Care: No Living arrangements: with family Spiritual care concerns: No Anes - Eval Final PreProcedure Day of Procedure 02/06/25 13:14 Patient weight: normal and thin Lungs: normal air movement Airway: Mallampati scale class II Neurological: alert and oriented Last oral intake: >/= 8 hours ASA classification: II Emergent: no Anesthetic plan: proceed Anesthesia type and monitoring: general GIVS and standard monitoring Results Review: All pre-operative results and documents have been reviewed as part of the pre-operative evaluation. GERD, ADHD. Informed Consent: The patient's anesthetic plan and its attendant risks and benefits were discussed with the patient/family/POA. Questions were solicited and answers provided to the satisfaction of the patient/family/POA.
--- NOTE | 2025-02-06 13:45 | PM.IMHP ---
H&P: HPI History of Present Illness Date/Time: 02/06/25 13:45 Chief Complaint: Nausea - epigastric discomfort Narrative: the patient has been suffering from persistent nausea and very frequent epigastric sharp pain, and is under evaluation. Review of Systems Review of Systems: All systems reviewed & are unremarkable except as noted in HPI and below PMFSH Past Medical History Medical History Anxiety ADD (attention deficit disorder) GERD (gastroesophageal reflux disease) Hypertriglyceridemia Family History Family History Father No problems noted. Mother Hypertension Grandparent Hypertension Diabetes mellitus Heart disease Kidney disease Social History Social History Smoking status: Never smoker Second hand tobacco smoke exposure: No Alcohol intake: current Drinks per week: 6 Alcohol use details: rare Substance use: never Substance use type: does not use Do You Feel Safe in your Home?: No Lack of Transportation: No Lack of Food: Never True Current Housing: I Have Housing Concerned About Future Housing: No Difficulty Paying Gas/Electric Bills: No Difficulty Paying for Meds: No Currently Unemployed: No Education: Don't Know Difficulty w/ Childcare or Family Care: No Living arrangements: with family Spiritual care concerns: No Meds Home Medications and Allergies Home Medications ?Medication ?Instructions ?Recorded ?Confirmed ?Type ondansetron 4 mg disintegrating 4 mg PO Q8H #60 tabs 01/30/25 02/05/25 Rx tablet pantoprazole 40 mg tablet,delayed 40 mg PO QAM #30 tabs 01/30/25 02/05/25 Rx release dicyclomine 10 mg capsule 10 mg PO TID #90 caps 02/02/25 02/05/25 Rx Allergies Allergy/AdvReac Type Severity Reaction Status Date / Time No Known Allergies Allergy Verified 02/06/25 12:51 Vital Signs Vital Signs - 24 hr 02/06/25 12:53 Temperature 97.7 F Pulse Rate 67 Respiratory Rate 18 Blood Pressure 128/69 Pulse Oximetry 100 Oxygen Delivery Room Air Exam Const: General: cooperative and healthy appearing Resp: Effort & Inspection: normal respiratory effort and able to speak in complete sentences Auscultation: clear to auscultation bilaterally Cardio: Rate: regular rate Rhythm: regular rhythm GI: Inspection: normal to inspection GI Palp: No No hepatosplenomegaly present Auscultation: normal bowel sounds Rectal Exam: deferred Skin: General skin exam: normal color Psych: Appearance: grossly normal Mental Status: mental status grossly normal Assessment and Plan Assessment and plan (1) Upper abdominal pain: Code(s): R10.10 - Upper abdominal pain, unspecified Status: Acute Assessment and Plan: The patient is deemed a good candidate for the procedure. Consent signed. Will proceed.
[2025-02-06 14:05] VITALS: BP 94/53; PULSE 66; RESP 22; O2SAT 98
[2025-02-06 14:07] LABS: BEDSIDEPREGUCG Negative (Negative)
[2025-02-06 14:15] VITALS: BP 96/55; PULSE 61; RESP 19; O2SAT 100
[2025-02-06 14:25] VITALS: BP 106/73; PULSE 63; RESP 19; O2SAT 100
== END 2025-02-06 14:38 | disposition home or self-care (01) ==
PROVIDERS: Referring Provider Nurse Practitioner Family; Visit Provider Internal Medicine Gastroenterology
PROC: 0DJ08ZZ Inspection of Upper Intestinal Tract, Via Natural or Artificial Opening Endoscopic (ICD-10-PCS; CPT 43239; principal; 2025-02-06 14:00)
DX: R11.2 Nausea with vomiting, unspecified (principal); R10.10 Upper abdominal pain, unspecified
CPT/HCPCS: 43239; 88305; J2003; J2704; J7120

== ENCOUNTER 2025-02-19 07:40 | Outpatient (CLI) | payer BC, SELFPAY ==
--- NOTE | ~2025-02-19 | NM_ITS ---
History: Abdominal pain Interpretation: Following intravenous administration of 4.9 mCi. of Technetium-Mebrofenin, serial nevaeh ges obtained reveal prompt concentration by the liver which is normal in size and without any focal a bnormalities. There is normal excretion from the liver. The gallbladder and small bowel are visuali zed by 60 minutes. At 60 minutes the patient intravenously received 0.02 mcg/kg of CCK and 30 cc normal saline delivered by palm over 60 minutes. The patient was imaged for approximately the next 60 minutes. Regions of in terest were drawn about the gallbladder and background and gallbladder ejection fraction calculated. The gallbladder ejection fraction measures 89%. ( GBEF will measure > or = 49%, in 95% of normals. GBEF will measure > or= 38% in 99% of normals ) Impression: Normal hepatobiliary scan. No evidence of cystic duct or common bile duct obstruction. This effecti vely excludes acute cholecystitis. Normal gallbladder ejection fraction of 89%. Huang et al.,Sincalide-Stimulated Cholescintigraphy: A Multicenter Investigation to Determine Opti mal Infusion Methodology and Gallbladder Ejection Fraction Normal Values. JNM. Vol 51. No.2. Dec 2009 . Reviewed, dictated and finalized at location . Impression: Normal hepatobiliary scan. No evidence of cystic duct or common bile duct obst ruction. This effectively excludes acute cholecystitis. Normal gallbladder ejection fraction of 89%. Huang et al.,Sincalide-Stimulated Cholescintigraphy: A Multicenter Investiga tion to Determine Optimal Infusion Methodology and Gallbladder Ejection Fractio n Normal Values. JNM. Vol 51. No.2. Dec 2009.
== END 2025-02-19 07:41 | disposition home or self-care (01) ==
PROVIDERS: Visit Provider Nurse Practitioner Family
DX: R10.10 Upper abdominal pain, unspecified (principal); R63.4 Abnormal weight loss
CPT/HCPCS: 78226; A9537